=== PATIENT | male | born 1940 | race Caucasian/White ===

== ENCOUNTER 2017-06-03 09:37 | Day surgery (SDC) | payer MEDICARE ==
[~2017-06-03] VITALS: Ht 165.1 cm; Wt 65.7 kg
[~2017-06-03 09:37] MED LIST: ASPI-1197 PO; BENA10TA3 PO; CARV3.12 PO; MULT-1203 PO; RANO500T2 PO; SIMV20TA6 PO; SODIUM CHLORIDE 0.9% 1000ML 1,000 ML IV ONE
[2017-06-03 10:02] VITALS: BP 131/66
[2017-06-03] MEDS ORDERED: PROPOFOL 10 MG/ML 20ML VIAL IV ONE (10:40)
[2017-06-03] MEDS ORDERED: GLYCOPYRROLATE 0.2 MG/ML 5 ML VIAL ONE (10:41)
[2017-06-03 10:55] VITALS: BP 84/52
== END 2017-06-03 11:36 | disposition home or self-care (01) ==
LOC: ENDO 09:37 → DAH 09:37 → ENDO 11:36
PROVIDERS: ATTEND Internal Medicine Gastroenterology
DX: K22.2 Esophageal obstruction (principal); K44.9 Diaphragmatic hernia without obstruction or gangrene; I10 Essential (primary) hypertension; E78.4 Other hyperlipidemia; I25.10 Atherosclerotic heart disease of native coronary artery without angina pectoris; Z95.1 Presence of aortocoronary bypass graft; Z79.899 Other long term (current) drug therapy; Z79.82 Long term (current) use of aspirin
CPT/HCPCS: 43248; 93005; A4606; J2704; J3490; J7030

== ENCOUNTER → 2019-02-27 | Outpatient (CLI) | payer MEDICARE ==
[~2019-02-27] MED LIST changes: +BENA10TA12 PO; -BENA10TA3 PO; +SIMV-43 PO; -SIMV20TA6 PO; -SODIUM CHLORIDE 0.9% 1000ML 1,000 ML IV ONE
== END | disposition home or self-care (01) ==
LOC: OIH 09:39
PROVIDERS: ATTEND Internal Medicine
DX: J44.9 Chronic obstructive pulmonary disease, unspecified (principal); Z98.890 Other specified postprocedural states
CPT/HCPCS: 71046